=== PATIENT | female | born 1970 | race Caucasian/White ===

== ENCOUNTER 2020-05-16 16:39 | Emergency (ER) | payer OTHER ==
[~2020-05-16] VITALS: Ht 162.6 cm; Wt 53.5 kg
--- OUTSIDE RECORDS SUMMARY | ~2020-05-16 | XMS | Encounter Summary ---
Demographics + + + | Address | [address] | | | [place] [address] | + + + | Home Phone | | + + + | Preferred Language | Unknown | + + + | Marital Status | | + + + | Restoration Affiliation | Unknown | + + + | Race | White | + + + | Ethnic Group | Not or | + + + Author + + + | Author | [facility] | + + + | Organization | [facility] | + + + | Address | Unknown | + + + | Phone | Unavailable | + + + Care Team Providers + +------+ + | Care Dragger Out Name | Role | Phone | + +------+ + PCP | Unavailable | + +------+ + Encounter Details +--------+ + + + + | Date | Type | Department | Care Team | Description | +--------+ + + + + | 05/06/ | Transcribed | Allergy Clinic at | Dictation, Other | Transcribed | | 1996 | | [facility] [address] | | | | | | [address] | | | | | | [facility] | | | | | | [address] | | | | | | [place], [place] | | | | | | [address] | | | | | | [phone] | | | +--------+ + + + + Social History + +-------+ +--------+------+ | Tobacco Use | Types | Packs/Day | Years | Date | | | | | Used | | + +-------+ +--------+------+ | Never Assessed | | | | | + +-------+ +--------+------+ + + + | Sex Assigned at | Date Recorded | | | | + + + | Not on file | | + + + + + + + | Job Start Date | Occupation | Industry | + + + + | Not on file | Not on file | Not on file | + + + + + + + + | Travel History | Travel Start | Travel End | + + + + + + | No recent travel history available. | + + documented as of this encounter Progress Notes Interface, Cafeteria Helper In - 11/28/2006 3:06 AM PST [facility] [place] [address] [place] [address] or May 06, 1997 TAD TAB[facility] [address] [place] [address] RE:CARLIE SOMERS MR#:[id number] Dear Diana: As you know from our phone conversation today I had the opportunity to perform esophageal manometry on your patient, Carlie Somers, today at that [facility] in [place], [place]. Esophageal manometry was performed for a history of dysphagia in order to detect underlying motor abnormalities. Esophageal manometry was performed with a [employer] computerized system as well as a perfused catheter. The lower esophageal sphincter was initially studied and was located at 34 centimeters from the teeth. Mean pressure by station pull-through technique was 17 mm/Hg. Relaxation was seen with swallows. The body of the esophagus was next studied with port situated 5 centimeters apart in response to 5 ml water swallows. Peristalsis was seen with approximately 5 of the 10 swallows. The other swallows showed no evidence of transmitted contractions. Mean amplitude distally was between 0 and 260 mm/Hg and numerous motor abnormalities were noted including non transmitted contractions, aperistaltic contractions, as well as very large and prolonged distal and midesophageal body contractions measuring up to 260 mm/Hg and lasting as long as 15 seconds. 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 I think the motor abnormality clearly is contributing to her dysphagia and one of the potential therapeutic therapies could be a trial of calcium channel blocking drug such as Nifedipine in an effort to diminish these very large and hypertensive as well as prolonged distal esophageal contractions to see if this will improve her dysphagia. I appreciate the opportunity to assist in the care of Mirta. I hope this information is of some use to you in caring for her. If I can be of any further help please do not hesitate to contact me. Sincerely, Iliana Tucker M.D., F.A.C.P., F.A.C.G. Pulp Screen Operator, Medicine GONZALES/katy cc: DR LAU ELIO DEJESUS documented in this encounter Plan of Treatment Not on filedocumented as of this encounter Visit Diagnoses Not on filedocumented in this encounter"
--- OUTSIDE RECORDS SUMMARY | ~2020-05-16 | XMS | Clinical Summary ---
Demographics + + + | Address | [address] | | | [place] [address] | + + + | Home Phone | | + + + | Preferred Language | Unknown | + + + | Marital Status | | + + + | Restoration Affiliation | Unknown | + + + | Race | White | + + + | Ethnic Group | Not or | + + + Author + + + | Organization | Unknown | + + + | Address | Unknown | + + + | Phone | Unavailable | + + + Care Team Providers + +------+ + | Care Creative Perfumer Name | Role | Phone | + +------+ + PCP | Unavailable | + +------+ + Source Comments DAMARIS is fully live on both [facility] and [facility] InPatient.[facility] Allergies Not on File Medications Not on file Active Problems Not on file Social History + +-------+ +--------+------+ | Tobacco [...] recent travel history available. | + + Last Filed Vital Signs Not on file Plan of Treatment + + + + + | Health Maintenance | Due Date | Last Done | Comments | + + + + + | Influenza (Flu) | | | | | vaccination (#1) | 9 | | | + + + + + | Pneumococcal | Aged Out | | No longer eligible | | vaccination | | | based on patient's | | | | | age to complete this | | | | | topic | + + + + + Results Not on filefrom Last 3 Months"
--- OUTSIDE RECORDS SUMMARY | ~2020-05-16 | XMS | Encounter Summary ---
Demographics + + + | Address | [address] | | | [place] [address] | + + + | Home Phone | | + + + | Preferred Language | Unknown | + + + | Marital Status | | + + + | Latter Day Affiliation | Unknown | + + + | Race | White | + + + | Ethnic Group | Not or | + + + Author + + + | Author | [facility] | + + + | Organization | [facility] | + + + | Address | Unknown | + + + | Phone | Unavailable | + + + Care Team Providers + +------+ + | Care Stator Connector Name | Role | Phone | + +------+ + PCP | Unavailable | + +------+ + Encounter Details +--------+ + + + + | Date | Type | Department | Care Team | Description | +--------+ + + + + | 05/06/ | Transcribed | Allergy Clinic at | Dictation, Other | Transcribed | | 1996 | | [facility] [address] | | | | | | [address] | | | | | | [facility] | | | | | | [address] | | | | | | [place], [place] | | | | | | [address] | | | | | | [phone] | | | +--------+ + + + [...] as of this encounter Progress Notes Interface, Gourmet Coffee Attendant In - 11/28/2006 3:06 AM PST [facility] [place] [address], [place] [address] or May 06, 1997 [facility] [address] [place] [address] RE:CARLIE SOMERS MR#:[id number] Dear Diana: As you know from our phone conversation today I had the opportunity to perform esophageal manometry on your patient, Carlie Somers, today at that [facility] in [place], [place]. Esophageal manometry was performed for a history of dysphagia in order to detect underlying motor abnormalities. Esophageal manometry was performed with a [employer] computerized system as well as a perfused [...] me. Sincerely, Iliana Tucker M.D., F.A.C.P., F.A.C.G. Environmental Marketing Representative, Medicine GONZALES/katy cc: DR LAU ELIO DEJESUS documented in this encounter Plan of Treatment Not on filedocumented as of this encounter Visit Diagnoses Not on filedocumented in this encounter"
--- OUTSIDE RECORDS SUMMARY | ~2020-05-16 | XMS | Clinical Summary ---
Demographics + + + | Address | [address] | | | [place] [address] | + + + | Home Phone | | + + + | Preferred Language | Unknown | + + + | Marital Status | | + + + | Worship Affiliation | Unknown | + + + | Race | White | + + + | Ethnic Group | Not or | + + + Author + + + | Organization | Unknown | + + + | Address | Unknown | + + + | Phone | Unavailable | + + + Care Team Providers + +------+ + | Care Mid Level Business Analyst Name | Role | Phone | + +------+ + PCP | Unavailable | + +------+ + Source Comments DAMARIS is fully live on both [facility] and [facility] InPatient.[facility] Allergies Not on File Medications Not [...]
[2020-05-16] MEDS ORDERED: ONDANSETRON ODT8 MG PO (19:37)
== END 2020-05-16 19:44 | disposition home or self-care (01) ==
LOC: ED 16:39
DX: K29.00 Acute gastritis without bleeding (principal); F17.200 Nicotine dependence, unspecified, uncomplicated; Z88.0 Allergy status to penicillin
CPT/HCPCS: 76705; 80053; 81001; 83690; 85025; 96374; 99284-25

== ENCOUNTER 2021-12-30 17:38 | Emergency (ER) | payer OTHER ==
[~2021-12-30] VITALS: Ht 162.6 cm; Wt 59.0 kg
[~2021-12-30 17:38] MED LIST: CLINDAMYCIN HC300 MG PO; DOXYCYCLINE HY100 M3 PO; NEURONTIN100 MG; ONDANSETRON ODT8 MG PO
--- OUTSIDE RECORDS SUMMARY | 2021-12-30 17:40 | XMS ---
PreManage Notification: MOHAN SOMERS Security Health And Safety Tech Events No recent Security Events currently on file CRITERIA MET - [facility] - 2 Visits in 30 Days CARE PROVIDERS There are no care providers on record at this time. Kris has no Care Guidelines for this patient. [place] [facility] (12 MO.) [facility] NOTE: Visits indicate total known visits. ED/C VISIT TRACKING (12 MO.) [facility] COMPLAINT: - FEVER 12/30/2021 09:43 [facility] [place] TYPE: Emergency COMPLAINT: - FOLLOW UP PER INSTRUCTIONS 12/29/2021 13:29 [facility] [place] TYPE: Emergency COMPLAINT: - FEVER, FATIGUE, WEAKNESS INPATIENT VISIT TRACKING (12 MO.) No inpatient visits to display in this time frame [id number]
== END 2021-12-30 19:07 | disposition home or self-care (01) ==
LOC: ED 17:38
DX: R50.9 Fever, unspecified (principal); F17.200 Nicotine dependence, unspecified, uncomplicated; Z88.0 Allergy status to penicillin; Z79.899 Other long term (current) drug therapy
CPT/HCPCS: 99283

== ENCOUNTER 2025-02-25 10:52 | Emergency (ER) | payer BC, OTHER ==
[~2025-02-25] VITALS: Ht 162.6 cm; Wt 76.6 kg
[2025-02-25 11:47] LABS: BASOPHILS 0.9 % (0.1-1.2); EOSINOPHILS 1.1 % (0.7-5.8); HEMATOCRIT 40.7 % (34.1-44.9); HEMOGLOBIN 13.5 g/dL (11.2-15.7); LYMPHOCYTES 22.8 % (19.3-51.7); MCH 27.3 PG (25.6-32.2); MCHC 33.2 g/dL (32.2-35.5); MCV 82.2 fL (79.4-94.8); MONOCYTES 9.1 % (4.7-12.5); NEUTROPHILS 65.7 % (34.0-71.1); PLATELET COUNT 202 K/uL (182-369); RBC 4.95 M/uL (3.93-5.22)
[2025-02-25 12:05] LABS: ALBUMIN 3.5 g/dL (3.4-5.0); ALBUMIN/GLOBULIN RATIO 0.92 (1.1-2.4); ANION GAP 11.5 (7-21); BILIRUBIN, TOTAL 0.3 mg/dL (0.2-1.0); BUN/CREATININE RATIO 21.91 (6.0-28.6); CALCIUM 8.3 mg/dL (8.5-10.1); CREATININE, SERUM 0.73 mg/dL (0.55-1.02); MAGNESIUM 2.2 mg/dL (1.8-2.4); POTASSIUM 3.5 mmol/L (3.5-5.1); PROTEIN, TOTAL 7.3 g/dL (6.4-8.2)
[2025-02-25 14:42] VITALS: BP 118/91
--- NOTE | 2025-02-27 07:26 | EKG ---
[facility] [address] [facility] [place] [address] Signed Sinus bradycardia with occasional premature ventricular complexes Otherwise normal ECG When compared with ECG of 29-DEC-2021 13:58, premature ventricular complexes are now present Confirmed by Charly Harris MD ([id number]) on 02/27/2025 7:26:10 AM Electronically Signed By: CHARLY HARRIS MD 02/27/25 0726 PATIENT NAME: MOHAN SOMERS Electrocardiogram DATE OF : 68 PHYSICIAN: CHARLY HARRIS MD REPORT #: [id number] REPORT IS CONFIDENTIAL AND NOT TO BE RELEASED WITHOUT AUTHORIZATION
== END 2025-02-25 14:42 | disposition home or self-care (01) ==
LOC: ED 10:52
PROVIDERS: Emergency Medicine
DX: R20.2 Paresthesia of skin (principal); R51.9 Headache, unspecified; F17.200 Nicotine dependence, unspecified, uncomplicated; Z88.0 Allergy status to penicillin
CPT/HCPCS: 36415; 70450; 80053; 83735; 85025; 93005; 93010; 99284-25